=== PATIENT | female | born 1990 | race Two or more races ===

== ENCOUNTER 2022-03-11 23:37 | Emergency (ER) | payer OTHER ==
[2022-03-11] MEDS ORDERED: PENICILLIN G BENZATHINE 1,200,000 UNIT/2 ML PFS IM ONE ×2 (23:46→23:50)
[2022-03-11 23:48] VITALS: BP 97/55; PULSE 89; RESP 16; TEMP 98.6; BMI 23.6
== END 2022-03-12 00:10 | disposition home or self-care (01) ==
LOC: FER 23:37
DX: J02.0 Streptococcal pharyngitis (principal)
CPT/HCPCS: 99284-25

== ENCOUNTER 2022-07-16 20:29 | Emergency (ER) | payer OTHER ==
[2022-07-16 20:41] VITALS: BP 121/71; PULSE 76; RESP 18; TEMP 100.4; BMI 25.6
[2022-07-16] MEDS ORDERED: ACETAMINOPHEN 500 MG TABLET (FP) PO ONE (21:02)
[2022-07-16] MEDS ORDERED: ACETAMINOPHEN 500 MG TABLET (FP) ONE (21:09)
== END 2022-07-16 21:20 | disposition home or self-care (01) ==
LOC: FER 20:29
DX: J06.9 Acute upper respiratory infection, unspecified (principal); B97.89 Other viral agents as the cause of diseases classified elsewhere; Z20.822 Contact with and (suspected) exposure to COVID-19
CPT/HCPCS: 0241U-QW; 87651; 99283-25